=== PATIENT | male | born 1970 | race Two or more races ===

== ENCOUNTER 2018-03-26 04:21 | Emergency (ER) | payer SELFPAY ==
[~2018-03-26] VITALS: Ht 172.7 cm; Wt 83.9 kg
--- NOTE | 2018-03-26 04:25 | NUR ---
to bed 9 bib paramedics c/o altered, etoh. pt slow to respond, slurred speech, heavy alcohol smell on breath. pt aaox3 no acute distress noted, resp even and unlabored. place pt on cardiac monitoring, continuous pox. er md at bedside to eval pt wtih orders received. will carry out orders.
--- NOTE | 2018-03-26 06:22 | NUR ---
pt remains asleep, no acute distress noted, resp even and unlabored. call light within reach.
--- NOTE | 2018-03-26 07:13 | NUR ---
SOB WITH LOW O2 SAT PER EMS REPORT
[2018-03-26 09:47] VITALS: BP 105/68
--- NOTE | 2018-03-26 09:49 | NUR ---
Patient discharged to home in stable condition. Written and verbal after care instructions given. Patient verbalizes understanding of instruction. IV removed. Catheter intact and site benign. Pressure and 4x4 applied to site. No bleeding noted. pt ambulatory with steady gait.
== END 2018-03-26 09:49 | disposition home or self-care (01) ==
LOC: ER 04:24
DX: F10.10 Alcohol abuse, uncomplicated (principal)
CPT/HCPCS: A4606; Z7610